=== PATIENT | female | born 2000 | race Caucasian/White ===

== ENCOUNTER 2020-11-28 19:54 | Emergency (ER) | payer OTHER ==
[~2020-11-28] VITALS: Ht 154.9 cm; Wt 47.6 kg
[2020-11-28] MEDS ORDERED: DICYCLOMINE HCL 20 MG TAB PO ONE (20:45)
[2020-11-28] MEDS ORDERED: SODIUM CHLORIDE 0.9% 1000ML 1,000 ML IV SCH (20:45)
[2020-11-28] MEDS ORDERED: SODIUM CHLORIDE 0.9% 1000ML 1,000 ML ONE (20:58)
[2020-11-28] MEDS ORDERED: DICYCLOMINE HCL 10 MG CAP ONE (20:58)
[2020-11-28] MEDS ORDERED: SODIUM CHLORIDE 0.9% 50ML 50 ML ONE (20:59)
[2020-11-28] MEDS ORDERED: IOPAMIDOL 370 MG/ML 200 ML INFUS..BTL INJ ONE (21:00)
[2020-11-28] MEDS ORDERED: KETOROLAC TROMETHAMINE 30 MG/ML VIAL IV STA (22:39)
[2020-11-28] MEDS ORDERED: SODIUM CHLORIDE 0.9% 500ML 500 ML ONE (23:13)
[2020-11-28] MEDS ORDERED: DIPHENHYDRAMINE HCL INJ 50 MG/ML VIAL ONE (23:13)
[2020-11-28] MEDS ORDERED: ONDANSETRON HCL INJ 2MG/ML 2ML 2 MG/ML VIAL ONE (23:14)
[2020-11-28] MEDS ORDERED: ONDANSETRON ODT4 MG PO (23:44)
[2020-11-28] MEDS ORDERED: IMODIUM A-D2 M2 PO (23:45)
[2020-11-28] MEDS ORDERED: DICYCLOMINE HCL20 MG PO (23:46)
[2020-11-28] MEDS ORDERED: FAMOTIDINE40 MG PO (23:47)
[2020-11-29 00:02] VITALS: BP 126/76
[2020-11-29] MEDS ORDERED: ONDANSETRON HCL INJ 2MG/ML 2ML 2 MG/ML VIAL IV STA (01:13)
[2020-11-29] MEDS ORDERED: SODIUM CHLORIDE 0.9% 500ML 500 ML IV ONE (01:15)
[2020-11-29] MEDS ORDERED: DIPHENHYDRAMINE HCL INJ 50 MG/ML VIAL IV ONE (01:15)
== END 2020-11-29 00:02 | disposition home or self-care (01) ==
LOC: FSED 20:15
DX: R10.30 Lower abdominal pain, unspecified (principal); R11.0 Nausea; K52.9 Noninfective gastroenteritis and colitis, unspecified; K21.9 Gastro-esophageal reflux disease without esophagitis; B34.9 Viral infection, unspecified; D64.9 Anemia, unspecified; F17.210 Nicotine dependence, cigarettes, uncomplicated
CPT/HCPCS: 74177; 80048; 80076; 81003; 81025; 85025; 96374; 96376; 99284; J1200; J1885; J2405; J7030; J7040; Q9967

== ENCOUNTER 2023-12-22 06:45 | Emergency (ER) | payer OTHER ==
[~2023-12-22] VITALS: Ht 154.9 cm; Wt 54.4 kg
[~2023-12-22 06:45] MED LIST: DICYCLOMINE HCL20 MG PO; FAMOTIDINE40 MG PO; IMODIUM A-D2 M2 PO; ONDANSETRON ODT4 MG PO
[2023-12-22 06:53] VITALS: PULSE 75; RESP 16; TEMP 98.6; O2SAT 100
[2023-12-22 08:17] LABS: CLARITY,URINE SL CLOUDY (CLEAR); COLOR,URINE YELLOW (YELLOW); LEUKOCYTE ESTERASE ,URINE NEGATIVE (NEGATIVE); NITRITE,URINE NEGATIVE (NEGATIVE); PH,URINE 6 (5 - 7)
[2023-12-22 08:18] LABS: BACTERIA,URINE FEW /HPF; BILIRUBIN,URINE NEGATIVE (NEGATIVE); EPITHELIAL CELLS,URINE FEW /LPF; GLUCOSE, URINE NEGATIVE (NEGATIVE); KETONES,URINE NEGATIVE (NEGATIVE); PROTEIN,URINE DIPSTICK NEGATIVE (NEGATIVE); RBC,URINE 0-5 /HPF (0-5); URINE UROBILINOGEN 0.2 mg/dL (0.2 - 1); WBC,URINE (MAN) 0-5 /HPF (0-5)
[2023-12-22 08:24] LABS: PREGNANCY TEST, URINE NEGATIVE (NEGATIVE)
== END 2023-12-22 08:58 | disposition home or self-care (01) ==
LOC: ER 06:50
DX: N93.8 Other specified abnormal uterine and vaginal bleeding (principal); K21.9 Gastro-esophageal reflux disease without esophagitis
CPT/HCPCS: 81001; 81025; 99283